=== PATIENT | male | born 1955 | race Caucasian/White ===

== ENCOUNTER 2023-01-15 09:19 | Day surgery (SDC) | payer MEDICARE ==
[~2023-01-15] VITALS: Ht 177.8 cm; Wt 94.6 kg
[2023-01-15] MEDS ORDERED: KRILL OIL500 MG (09:39)
== END 2023-01-15 11:31 | disposition home or self-care (01) ==
LOC: ORSCSDS 09:19
PROVIDERS: Internal Medicine Gastroenterology
PROC: 0DJD8ZZ Inspection of Lower Intestinal Tract, Via Natural or Artificial Opening Endoscopic (ICD-10-PCS; principal; 2023-01-15 10:45)
DX: Z12.11 Encounter for screening for malignant neoplasm of colon (principal)
CPT/HCPCS: J2704; J7120